=== PATIENT | female | born 1975 | race Hispanic/Latino ===

== ENCOUNTER 2020-06-20 01:12 | Emergency (ER) | payer SELFPAY ==
[~2020-06-20] VITALS: Ht 157.5 cm; Wt 75.3 kg
[2020-06-20] MEDS ORDERED: SODIUM CHLORIDE 0.9% 1000ML 1,000 ML IV STA (01:33)
[2020-06-20] MEDS ORDERED: AZITHROMYCIN250 MG PO (01:41)
[2020-06-20] MEDS ORDERED: FAMOTIDINE20 MG PO (01:41)
[2020-06-20] MEDS ORDERED: DEXAMETHASONE6 MG PO (01:41)
[2020-06-20] MEDS ORDERED: ZOFRAN4 MG PO (01:41)
[2020-06-20] MEDS ORDERED: ACETAMINOPHEN500 MG PO (01:41)
[2020-06-20] MEDS ORDERED: CEFTRIAXONE SOD 1 GM VIAL IV ONE (01:45)
[2020-06-20] MEDS ORDERED: ONDANSETRON HCL INJ 2MG/ML 2ML 2 MG/ML VIAL IV ONE (01:45)
[2020-06-20] MEDS ORDERED: DEXAMETHASONE SOD PHOS INJ 4 MG/ML VIAL IV ONE (01:45)
[2020-06-20] MEDS ORDERED: ACETAMINOPHEN 325 MG TAB PO ONE (01:45)
[2020-06-20] MEDS ORDERED: CEFTRIAXONE SOD 1 GM 50 ML IV ONE ×2 (01:45→02:07)
[2020-06-20] MEDS ORDERED: KETOROLAC TROMETHAMINE 30 MG/ML VIAL IV ONE (01:45)
[2020-06-20] MEDS ORDERED: FAMOTIDINE 20 MG/2 ML VIAL IV ONE ×2 (01:45→02:07)
[2020-06-20] MEDS ORDERED: ONDANSETRON HCL INJ 2MG/ML 2ML 2 MG/ML VIAL ONE (02:06)
[2020-06-20] MEDS ORDERED: DEXAMETHASONE SOD PHOS INJ 4 MG/ML VIAL ONE (02:06)
[2020-06-20] MEDS ORDERED: ACETAMINOPHEN 325 MG TAB ONE (02:06)
[2020-06-20] MEDS ORDERED: KETOROLAC TROMETHAMINE 30 MG/ML VIAL ONE (02:06)
[2020-06-20] MEDS ORDERED: SODIUM CHLORIDE 0.9% 1000ML 1,000 ML ONE (02:07)
[2020-06-20] MEDS ORDERED: POTASSIUM CHLORIDE 20 MEQ TAB CR PO STA (02:32)
[2020-06-20] MEDS ORDERED: POTASSIUM CHLORIDE 20 MEQ TAB CR PO ONE (02:49)
[2020-06-20 03:49] VITALS: BP 116/69
== END 2020-06-20 03:49 | disposition home or self-care (01) ==
LOC: FSED 01:33
DX: U07.1 COVID-19 (principal); J18.9 Pneumonia, unspecified organism; R11.2 Nausea with vomiting, unspecified; E86.0 Dehydration
CPT/HCPCS: 71045; 80053; 85025; 96374; 96375; 96376; 99284; J0696; J1100; J1885; J2405; J7030